=== PATIENT | male | born 1940 | race African-American/Black ===

== ENCOUNTER 2020-09-12 09:25 | Inpatient (IN) | payer OTHER, SELFPAY ==
[2020-09-12] VITALS (14 sets, daily range): BP systolic 136–189; BP diastolic 74–102; PULSE 60–82; RESP 16–29; TEMP 36.9–38.6; O2SAT 91–100
--- NOTE | ~2020-09-12 | CT_ITS ---
EXAMINATION: CT brain wo con EXAM DATE: 09/12/2020 10:19 INDICATION: Altered mental status. TECHNIQUE: Spiral CT of the head was performed without contrast. Axial, coronal and sagittal images were reviewed. The dose-length product (DLP) for this examination was 605.33 mGy-cm. The exposure w as tailored according to patient size, and iterative reconstruction (ASIR) was used as additional dos e reduction technique. Comparison is made to prior examination from 08/05/2019. FINDINGS: Bilateral internal capsular and basal ganglia lacunar infarctions which are old. There is n o acute intraparenchymal hemorrhage. No evidence of intraparenchymal brain mass lesion. No evidence of acute infarction. Please note that initial head CT has limited sensitivity for small or acute in farctions. There is extensive periventricular and subcortical hypodensity, nonspecific but probably r elated to small vessel ischemic disease. There is ventricular prominence out of proportion to sulci which is suspected most likely central atrophy rather than hydrocephalus. Normal pressure hydroceph alus cannot be excluded (clinical triad ataxia/gait disturbance, dementia, urinary incontinence). T here is intracranial carotid arteriosclerosis. There are no extra-axial collections. There is no ma ss effect or midline shift. The orbits are unremarkable. Over the left frontal scalp toward the vertex there is hyperdense subcutaneous region measuring about 1.5 cm in diameter extending to the calvarium, which has been a chronic finding, therefore most like ly scarring. The visualized sinuses and mastoid air cells are well aerated. IMPRESSION: 1. No acute intracranial findings. 2. Chronic age related findings. 3. 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 Reviewed, dictated and finalized at location B. AGE INSPECTOR
--- NOTE | ~2020-09-12 | NM_ITS ---
EXAMINATION: NM pulmonary perfusion DATE: 09/13/2020 12:07 INDICATION: Shortness of breath. TECHNIQUE: 5.5 mCi Tc-99m MAA was administered intravenously for perfusion images. Scintigraphic sonya ges of the chest were obtained. COMPARISON: Chest single view 09/12/2020 FINDINGS: Sensitivity and specificity are decreased by the patient's inability to keep his arms above his head. Perfusion images show small and moderate sized defects in basilar right lower lobe. There are small defects in basilar left lower lobe. The radiograph demonstrates mild atelectasis at right lung base. IMPRESSION: 1. Nondiagnostic (intermediate probability for pulmonary embolism). Reviewed, dictated and finalized at location A. E LEADER
--- NOTE | ~2020-09-12 | XR_ITS ---
EXAMINATION: XR chest 1V EXAM DATE: 09/12/2020 10:22 INDICATION: Shortness of breath. TECHNIQUE: Portable AP frontal chest x-ray was obtained. Comparison is made to prior examination from 03/25/2018. FINDINGS: The lungs are clear. There are no pleural effusions. Cardiac silhouette is prominent but magnified on this AP technique. There is no pneumothorax suspected. The bones and soft tissues are unremarkable. There is aortic arteriosclerosis. There is no significant interval change. IMPRESSION: No acute cardiopulmonary findings. Reviewed, dictated and finalized at location B. ED SERVICES REPRESENTATIVE
--- NOTE | 2020-09-12 09:35 | ECG_ITS ---
Measurements Intervals [place] Rate: 66 P: 31 SC: 182 QRS: -29 QRSD: 99 T: 245 QT: 388 QTc: 408 Interpretive Statements SINUS RHYTHM LEFT VENTRICULAR HYPERTROPHY AND ST-T CHANGE INFERIOR INFARCT, AGE INDETERMINATE T WAVE ABNORMALITY IN LATERAL LEADS- CONSIDER ISCHEMIA BASELINE ARTIFACT- V2 ABNORMAL ECG Electronically Signed On 09-12-2020 9:40:55 METAL TEMPERER by Pastor Scott D.O.
[2020-09-12 09:46] LABS: Basophils Percent Auto 0.4 % (0.2-1.2); Eosinophils Percent Auto 0.1 % (0-4.4); Hematocrit 42.8 % (42.0-52.0); Hemoglobin 13.6 g/dL (14.0-18.0); Immature Granulocyte Absolute 0.03 K/mm3 (0.00-0.031); Immature Granulocyte Percent A 0.4 % (0-0.5); Lymphocytes Absolute Auto 1.85 K/mm3 (0.9-3.2); Lymphocytes Percent Auto 23.5 % (18.3-44.2); Mean Corpuscular HGB Conc 31.8 g/dl (32-36); Mean Corpuscular Hemoglobin 28.3 pg (26-34); Mean Corpuscular Volume 89.2 fl (80-100); Monocytes Absolute Auto 1.4 K/mm3 (0.1-0.6); Monocytes Percent Auto 17.4 % (2.6-8.5); Neutrophils Absolute Auto 4.6 K/mm3 (1.3-6.7); Neutrophils Percent Auto 58.2 % (45.5-73.1); Platelet Count Result 217 k/mm3 (150-375); Red Cell Distribution Width 15.1 % (11.5-14.5); White Blood Count 7.9 K/mm3 (4.5-10.0)
--- NOTE | 2020-09-12 09:55 | ED.GENADULT ---
HPI - General Adult General Chief complaint: Weakness Stated complaint: DECREASED O2 SATS,ELEVATED TEMP Time Seen by Provider: 09/12/20 09:33 Source: EMS and RN notes reviewed Mode of arrival: EMS History of Present Illness HPI narrative: Patient is a 79 y/o male sent from [place] for fever and decreased mental status. His fever reportedly started last night and was 100.8. He was given Tylenol early this morning around 4:30 AM, which helped with his fever. He has dementia at baseline and normal is awake, but does not talk much. Currently, he is lethargic and unable to provide any history. He also reportedly had pulse ox of 73% on RA and was placed on O2 at 4 L NC. He reportedly tested positive for COVID last Saturday (3 days ago). Related Data Home Medications Medication Instructions Recorded Confirmed amlodipine 5 mg PO DAILY 08/05/19 aspirin 81 mg PO DAILY 08/05/19 cholecalciferol (vitamin D3) unit 08/05/19 [Vitamin D3] clopidogrel 08/05/19 donepezil 10 mg PO HS 08/05/19 hydralazine 10 mg PO BID 08/05/19 isosorbide dinitrate 5 mg PO BID 08/05/19 labetalol 200 mg PO Q12H 08/05/19 magnesium oxide 400 mg PO DAILY 08/05/19 potassium chloride [K-Tab] 40 meq PO BID 08/05/19 simvastatin mg 08/05/19 Allergies Allergy/AdvReac Type Severity Reaction Status Date / Time No Known Allergies Allergy Unverified 09/12/20 09:47 Review of Systems Review of Systems: ROS unobtainable: Yes unobtainable due to mental status [facility] Past Medical History Medical History Arthritis CAD (coronary artery disease) Cardiomegaly Cerebral hemorrhage COPD (chronic obstructive pulmonary disease) Dementia Depression DJD (degenerative joint disease) Emphysema lung [place] GERD (gastroesophageal reflux disease) HTN (hypertension) Hyperlipidemia Left ventricular hypertrophy PTSD (post-traumatic stress disorder) Renal insufficiency Urinary incontinence Surgical History Surgical History No history of previous surgery Social History Social History Smoking status: Former smoker Gender identity (if verbalized by the patient): Male Exam Const: General: no acute distress and ill appearing Orientation/consciousness: confusion and lethargic HENMT: Head: normocephalic Ears: external ears normal General nose exam: Normal external nose present Eyes: General: appearance normal, both eyes and all related structures Conjunctivae: conjunctivae normal Neck: Neck: normal visual inspection and full ROM Chest: Chest palpation & inspection: normal inspection of the chest and no tenderness Resp: Effort & Inspection: normal respiratory effort Auscultation: clear to auscultation bilaterally Cardio: Rate: regular rate Rhythm: regular rhythm GI: GI Palp: No abdominal tenderness and Yes Soft to palpation Skin: General skin exam: normal color and turgor normal Neuro: General: confusion Cognition (Neuro): abnormal cognition Extrem: General: normal to inspection, full ROM and no pedal edema Psych: Appearance: grossly normal Affect: Blunted affect present Course Consultations Consultation #1: Discussed with Dr. Duke, who agrees to admit. Date: 09/12/20 Time: 11:01 Vital Signs Vital signs: Vital Signs Temperature 36.9 C 09/12/20 09:27 Pulse Rate 69 09/12/20 09:27 Respiratory Rate 24 H 09/12/20 09:27 Blood Pressure 148/90 H 09/12/20 09:27 Pulse Oximetry 91 09/12/20 09:27 Temperature 37.3 C 09/12/20 13:00 Pulse Rate 61 09/12/20 13:00 Respiratory Rate 18 09/12/20 13:00 Blood Pressure 136/82 09/12/20 13:00 Pulse Oximetry 100 09/12/20 13:00 Medical Decision Making Vital Signs Vital Signs: Vital Signs Temperature 36.9 C 09/12/20 09:27 Pulse Rate 69 09/12/20 09:27 Respiratory Rate 24 H 09/12/20 09:27 Blood Pressure 14
[2020-09-12 09:58] LABS: Alanine Aminotransferase 27 U/L (4-50); Albumin Level 3.7 g/dL (3.5-5.1); Alkaline Phosphatase 55 U/L (38-126); Anion Gap 6 mmol/L (8-16); Aspartate Amino Transferase 41 U/L (17-59); Bilirubin,Total 0.4 mg/dL (0.2-1.3); Blood Urea Nitrogen 42 mg/dL (9-20); Calcium 9.7 mg/dL (8.4-10.2); Carbon Dioxide 28 mmol/L (22-30); Chloride 115 mmol/L (98-107); Estimated CRCL calculation 20 ml/min; Estimated Glomerular Filt Rate 26; Glucose 114 mg/dL (75-110); Potassium 4.3 mmol/L (3.4-5.0); Sodium 149 mmol/L (137-145)
[2020-09-12 10:05] LABS: Base Excess ABG -0.7 mEq/l (+/-2.0); Fractional Inspired Oxygen 21 %; HCO3 ABG 25.1 mEq/l (22.0-26.0); Oxygen Content ABG 19.3 %vol (16.0-22.0); Oxygen Saturation ABG 98.3 % (95.0-100.0); Oxyhemoglobin 96.9 % THb (90.0-100.0); PCO2 ABG 45.7 mmHg (35.0-45.0); PO2 ABG 125.4 mmHg (80.0-100.0); PO2 FiO2 Ratio Arterial Blood 5.97 %; pH ABG 7.358 (7.350-7.450)
[2020-09-12 10:06] LABS: Device ROOM AIR; Modified Allen's Test Pass; Site Drawn RIGHT RADIAL
[2020-09-12] MEDS: DEXAMETHASONE SOD PHOS INJ 4 MG/ML VIAL 6 MG IV PUSH (10:27)
[2020-09-12] MEDS: SODIUM CHLORIDE 0.9% IV 1,000 ML 999 ML IV CONT (10:27)
[2020-09-12 11:02] LABS: Add Urine Microscopic? YES; Appearance Urine Clear (Clear); Bilirubin Urine Negative (Negative); Color Urine Yellow (Yellow); Glucose Urine UA Negative (Negative); Hyaline Casts Urine 15-19 /lpf; Ketones Urine Negative (Negative); Leukocyte Esterase Ur Negative LEU/UL (Negative); Mucus Urine Rare /lpf; Nitrate Urine Negative (Negative); Protein Urine 2+ mg/dL (Negative); Specific Grav Ur 1.028 (1.001-1.035); Squamous Epithelial Cell Urine Rare /hpf (Few); Urobilinogen Urine Negative mg/dL (<2.0)
[2020-09-12 11:03] LABS: Lactic Acid Reflex 2.6 mmol/L (0.7-2.1)
[2020-09-12 11:10] LABS: Blood Urine Negative (Negative)
--- NOTE | 2020-09-12 13:30 | PM.IMHP ---
H&P: HPI History of Present Illness Date/Time: 09/12/20 13:30 Chief Complaint: Lethargy, hypoxia, fever. 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 Given his significant dementia he is not able to provide an accurate history and as such a majority of the following is obtained via a review of his electronic medical records. At the time of my dictation he keeps his eyes close, and forces them shot when I attempt to open them. He does not answer questions however will follow simple commands including squeezing my fingers and helping me get him more situated in bed. It is documented that he tested positive for COVID on 09/09/2020 and since that time he has become progressively more lethargic and confused. Today his SpO2 was reportedly 73% on room air prompting him to be brought in for evaluation. He has minimal oxygen requirements at this time however is being admitted as he was found to have an acute on chronic kidney injury and is being admitted in this setting. Again he answers no questions and provides no history. Review of Systems Review of Systems: Narrative: Unable to be assessed given his dementia and current condition as detailed above. [facility] Past Medical History Medical History Arthritis Cardiomegaly Cerebral hemorrhage Chronic kidney disease, stage 3 Chronic obstructive pulmonary disease Congestive heart failure The patient has evidence of mixed systolic and diastolic congestive heart failure with impaired diastolic relaxation grade 1 and some wall motion abnormalities of the left ventricle with an ejection of 50 to 55% on echocardiogram in March 2018. Echocardiogram in January 2015 showed mild global left ventricular systolic dysfunction with an EF of 45 to 50%. Coronary artery disease Degenerative joint disease Dementia Depression Emphysema lung [place] Gastroesophageal reflux disease Hyperlipidemia Hypertension Posttraumatic stress disorder Urinary incontinence Valvular heart disease Mild mitral valve regurgitation and dgya-[id number] atrial valve regurgitation noted on echocardiogram in March 2018. Surgical History Surgical History No history of previous surgery Family History Family History (Updated 09/12/20 @ 15:17 by Mehreen Lawrence PA-C) Other Unknown family medical history Social History Social History (Updated 09/12/20 @ 15:17 by Mehreen Lawrence PA-C) Social History: He is a resident at [facility]. Former smoker. No alcohol or illicit substance use. Healthcare power of civil attorney is his nephew, Wale Verdugo. Full code. Spiritual care concerns: No Meds Home Medications and Allergies Home Medications Medication Instructions Recorded Confirmed Type amlodipine 5 mg PO DAILY 08/05/19 09/12/20 History aspirin 81 mg PO DAILY 08/05/19 09/12/20 History cholecalciferol (vitamin D3) See Rx Instructions .ROUTE .COMPLEX 08/05/19 09/12/20 History [Vitamin D3] clopidogrel 75 mg PO DAILY 08/05/19 09/12/20 History donepezil 10 mg PO HS 08/05/19 09/12/20 History hydralazine 10 mg PO BID 08/05/19 09/12/20 History isosorbide dinitrate 5 mg PO TID 08/05/19 09/12/20 History labetalol 200 mg PO Q12H 08/05/19 09/12/20 History magnesium oxide 400 mg PO DAILY 08/05/19 09/12/20 History potassium chloride [K-Tab] 40 meq PO DAILY 08/05/19 09/12/20 History simvastatin 5 mg PO HS 08/05/19 09/12/20 History Allergies Allergy/AdvReac Type Severity Reaction Status Date / Time No Known Allergies Allergy Verified 09/12/20 14:19 Vital Signs Vital Signs - 24 hr 09/12/20 09:27 09/12/20 09:30 09/12/20 09:34 Monica
[2020-09-12 13:49] LABS: Reflex Lactic Acid Yes or No Add Lactic
--- NOTE | 2020-09-12 13:57 | ADMGEN ---
This patient, Wale Dickson, was admitted to [facility] Surg Room 307-01. Patient/family oriented to hospital policies and general routines including ID bracelet, bed and alarms, visiting hours, pain management, procedures, bathroom and other care routines, personal items, smoking policy, room service/diet, and visiting hours. Information on how to activate the Rapid Response Team has been discussed. Patient/Family are encouraged to report perceived risks to care and to ask questions if they do not understand what they are told or what they should do.
[2020-09-12 14:26] LABS: Lactic Acid 1.2 mmol/L (0.7-2.1)
[2020-09-12 15:54] LABS: D Dimer 2.07 ug/mL (<0.48)
[2020-09-12 16:08] LABS: Anion Gap 4 mmol/L (8-16); Blood Urea Nitrogen 41 mg/dL (9-20); Calcium 9.7 mg/dL (8.4-10.2); Carbon Dioxide 31 mmol/L (22-30); Chloride 115 mmol/L (98-107); Creatine Kinase 657 U/L (55-170); Estimated CRCL calculation 23 ml/min; Estimated Glomerular Filt Rate 31; Glucose 129 mg/dL (75-110); Lactate Dehydrogenase 451 U/L (313-618); Potassium 4.6 mmol/L (3.4-5.0); Sodium 150 mmol/L (137-145)
[2020-09-12] MEDS: SODIUM CHLORIDE 0.9% IV 1,000 ML 125 ML IV CONT (16:08)
[2020-09-12 16:21] LABS: CRP 3.1 mg/dL (<1.0)
[2020-09-12] MEDS: hydrALAZINE 10 MG TABLET PO (17:03)
[2020-09-12] MEDS: ISOSORBIDE DINITRATE 5 MG TABLET PO (17:03)
[2020-09-12] MEDS: LABETALOL HCL 100 MG TABLET 200 MG PO (21:19)
[2020-09-12] MEDS: DONEPEZIL HCL 10 MG TABLET PO (21:19)
[2020-09-12] MEDS: SIMVASTATIN 5 MG TABLET PO (21:20)
[2020-09-12] MEDS: SODIUM CHLORIDE 0.45% 1,000 ML 100 ML IV CONT (22:35)
[2020-09-13] VITALS (10 sets, daily range): BP systolic 136–201; BP diastolic 60–101; PULSE 56–91; RESP 20; TEMP 36.4–36.9; O2SAT 92–100
[2020-09-13 00:58] LABS: Sodium 149 mmol/L (137-145)
--- NOTE | 2020-09-13 01:39 | PC.NURSE ---
SPOKE W/ DR. MENDOZA RE: SYSTOLIC/DIASTOLIC HTN THIS SHIFT 190s-200/100s. PT RESTFUL. NO S/X OF PAIN OR DISTRESS. LUNGS DIMINISHED THROUGHOUT. ORDER TO RECHECK IN 1HR.
[2020-09-13] MEDS: hydrALAZINE 10 MG TABLET PO ×3 (04:21→17:06)
--- NOTE | 2020-09-13 05:12 | PC.NURSE ---
PT'S NEPHEW/POA UPDATED RE:PT STATUS
[2020-09-13 06:37] LABS: Hematocrit 44.7 % (42.0-52.0); Hemoglobin 13.3 g/dL (14.0-18.0); Mean Corpuscular HGB Conc 29.8 g/dl (32-36); Mean Corpuscular Hemoglobin 27.7 pg (26-34); Mean Corpuscular Volume 92.9 fl (80-100); Mean Platelet Volume 10.7 fl (7.4-10.4); Platelet Count Result 174 k/mm3 (150-375); Red Blood Count 4.81 M/mm3 (4.6-6.20); Red Cell Distribution Width 14.8 % (11.5-14.5); White Blood Count 8.1 K/mm3 (4.5-10.0)
[2020-09-13 07:01] LABS: Anion Gap 7 mmol/L (8-16); Blood Urea Nitrogen 35 mg/dL (9-20); Calcium 9.1 mg/dL (8.4-10.2); Carbon Dioxide 23 mmol/L (22-30); Chloride 118 mmol/L (98-107); Estimated CRCL calculation 33 ml/min; Estimated Glomerular Filt Rate 48; Glucose 102 mg/dL (75-110); Magnesium 2.1 mg/dL (1.6-2.3); Potassium 4.6 mmol/L (3.4-5.0); Sodium 148 mmol/L (137-145)
[2020-09-13] MEDS: hydrALAZINE HCL 20 MG/ML VIAL 10 MG IV PUSH ×2 (08:29→21:39)
[2020-09-13] MEDS: LABETALOL HCL 100 MG TABLET 200 MG PO ×2 (10:08→20:18)
[2020-09-13] MEDS: SODIUM CHLORIDE 0.45% 1,000 ML 100 ML IV CONT ×2 (10:08→22:36)
[2020-09-13] MEDS: ISOSORBIDE DINITRATE 5 MG TABLET PO ×3 (10:14→17:07)
[2020-09-13] MEDS: amLODIPine BESYLATE 5 MG TABLET PO (10:14)
[2020-09-13] MEDS: CLOPIDOGREL BISULFATE 75 MG TABLET PO (10:14)
[2020-09-13] MEDS: MAGNESIUM OXIDE 400 MG TABLET PO (10:14)
[2020-09-13] MEDS: ASPIRIN 81 MG CHEWABLE TABLET PO (10:14)
[2020-09-13] MEDS: DEXAMETHASONE SOD PHOS INJ 4 MG/ML VIAL 6 MG IV PUSH (10:15)
[2020-09-13] MEDS: CHOLECALCIFEROL 1,000 UNITS TABLET 1000 UNITS PO (11:14)
--- NOTE | 2020-09-13 14:49 | PM.IMPN ---
Progress Note: A&P Assessment and Plan (1) Acute kidney injury superimposed on chronic kidney disease: Code(s): N17.9 - Acute kidney failure, unspecified; N18.9 - Chronic kidney disease, unspecified Status: Acute Assessment and Plan: Cr 2.90 on arrival. 1.70 today. Likely prerenal from dehydration, poor po intake. Cr appears to be at 1.50 in 2018 Continue IV fluids overnight Monitor renal function Reassess tomorrow (2) Hypernatremia: Code(s): E87.0 - Hyperosmolality and hypernatremia Status: Acute Assessment and Plan: Na 148; slow improvement Monitor Na with IV fluids - NaCl 0.45% (3) Dehydration: Code(s): E86.0 - Dehydration Status: Acute Assessment and Plan: Diet resumed. Patient appears to be more alert today, hopefully this will improve PO intake Continue IV fluids for now (4) Acute respiratory failure with hypoxia: Code(s): J96.01 - Acute respiratory failure with hypoxia Status: Acute Assessment and Plan: 2L NC on arrival, but now has been weaned to RA today. Possibly related to COVID vs other such as atelecatsis. V/Q scan indeterminate. Given that he is on RA now, PE less likely. Monitor (5) COVID-19 virus infection: Onset Date: ~09/09/20 Code(s): U07.1 - COVID-19 Status: Acute Assessment and Plan: Positive for COVID on 09/09. CXR unremarkable. Continue with decadron daily for now Continue supportive care (6) Dementia: Code(s): F03.90 - Unspecified dementia without behavioral disturbance Status: Acute Assessment and Plan: Apparently patient more alert and does not talk much. Unclear if he is at his baseline today but was able to tell me his name and answered some questions Additional Plan #Reviewed Telemetry as above and this can be discontinued. #BP reviewed and was upwards of 200 sys overnight; given hydralazine. 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 Patient has history dementia and nursing reports he does not say much. He is sleeping initially but wakes up with light physical stimuli when touching his foot. He tells me his full name but cannot answer other orientation questions. He nods yes/no to some ROS. He endorses f/c but denies cp, current sob, n/v, abdominal pain, calf pain. Per ER note, his baseline orientation is awake, but does not talk much. Review of Systems Review of Systems: All systems reviewed & are unremarkable except as noted in HPI and below (limited due to mental status) Exam Narrative: Exam Narrative: General: Patient resting supine in bed in no acute distress. Sleeping initially, easily arousable. Can tell me his name, but otherwise does not communicate much as noted above HEENT: Normocephalic, EOMI, oral mucosa a bit dry Cardiovascular: Rate and rhythm are regular. Murmur appreciated. Telemetry shows sinus rhythm with frequent PVCs Respiratory: Lungs clear to auscultation anterolateral lung dunbar. Non-labored breathing. On RA at time of visit Abdomen: Soft, non-tender, non-distended, bowel sounds present. Extremities: Peripheral pulses intact. No edema. NTTP b/l calves Neuro: Alert, but only able to tell me his name. He can follow simple commands. Objective Data Vital Signs Vital Signs: Last Vital Signs Temp 97.8 F 09/13/20 12:00 Pulse 67
[2020-09-13] MEDS: ENOXAPARIN 40 MG/0.4 ML SYRINGE SUB-Q (15:29)
[2020-09-13] MEDS: DONEPEZIL HCL 10 MG TABLET PO (20:19)
[2020-09-13] MEDS: SIMVASTATIN 5 MG TABLET PO (20:19)
[2020-09-14] VITALS (7 sets, daily range): BP systolic 139–174; BP diastolic 72–94; PULSE 79–89; RESP 16–22; TEMP 36.6–37.3; O2SAT 92–99
[2020-09-14] MEDS: hydrALAZINE HCL 20 MG/ML VIAL 10 MG IV PUSH (05:31)
[2020-09-14 06:36] LABS: Basophils Percent Auto 0.1 % (0.2-1.2); Hemoglobin 14.2 g/dL (14.0-18.0); Immature Granulocyte Absolute 0.09 K/mm3 (0.00-0.031); Immature Granulocyte Percent A 0.6 % (0-0.5); Lymphocytes Absolute Auto 2.05 K/mm3 (0.9-3.2); Lymphocytes Percent Auto 14.4 % (18.3-44.2); Mean Corpuscular HGB Conc 31.6 g/dl (32-36); Mean Corpuscular Hemoglobin 28.1 pg (26-34); Mean Corpuscular Volume 88.9 fl (80-100); Mean Platelet Volume 10.3 fl (7.4-10.4); Monocytes Absolute Auto 0.9 K/mm3 (0.1-0.6); Monocytes Percent Auto 6.5 % (2.6-8.5); Neutrophils Absolute Auto 11.2 K/mm3 (1.3-6.7); Neutrophils Percent Auto 78.4 % (45.5-73.1); Platelet Count Result 203 k/mm3 (150-375); Red Blood Count 5.06 M/mm3 (4.6-6.20); Red Cell Distribution Width 14.6 % (11.5-14.5); White Blood Count 14.2 K/mm3 (4.5-10.0)
[2020-09-14 06:53] LABS: Anion Gap 7 mmol/L (8-16); Blood Urea Nitrogen 28 mg/dL (9-20); Calcium 9.5 mg/dL (8.4-10.2); Carbon Dioxide 29 mmol/L (22-30); Chloride 111 mmol/L (98-107); Estimated CRCL calculation 40 ml/min; Estimated Glomerular Filt Rate 60; Glucose 84 mg/dL (75-110); Magnesium 1.8 mg/dL (1.6-2.3); Potassium 4.1 mmol/L (3.4-5.0); Sodium 147 mmol/L (137-145)
[2020-09-14] MEDS: amLODIPine BESYLATE 5 MG TABLET PO (09:31)
[2020-09-14] MEDS: ASPIRIN 81 MG CHEWABLE TABLET PO (09:31)
[2020-09-14] MEDS: CLOPIDOGREL BISULFATE 75 MG TABLET PO (09:32)
[2020-09-14] MEDS: DEXAMETHASONE SOD PHOS INJ 4 MG/ML VIAL 6 MG IV PUSH (09:32)
[2020-09-14] MEDS: LABETALOL HCL 100 MG TABLET 200 MG PO (09:32)
[2020-09-14] MEDS: CHOLECALCIFEROL 1,000 UNITS TABLET 1000 UNITS PO (09:32)
[2020-09-14] MEDS: hydrALAZINE 10 MG TABLET PO (09:32)
[2020-09-14] MEDS: MAGNESIUM OXIDE 400 MG TABLET PO (09:33)
[2020-09-14] MEDS: ISOSORBIDE DINITRATE 5 MG TABLET PO (09:33)
[2020-09-14] MEDS: SODIUM CHLORIDE 0.45% 1,000 ML 100 ML IV CONT (09:39)
--- NOTE | 2020-09-14 12:19 | PM.DS ---
DS: Admitting Diagnosis Admitting Diagnosis Admitting Diagnosis: Acute on chronic kidney disease, COVID, hypoxia DS: Discharge Diagnosis Discharge Diagnosis (1) Acute kidney injury superimposed on chronic kidney disease: Code(s): N17.9 - Acute kidney failure, unspecified; N18.9 - Chronic kidney disease, unspecified Status: Acute Assessment and Plan: Cr 2.90 on arrival. 1.40 today. Likely prerenal from dehydration, poor po intake. Cr appears to be at 1.50 in 2018 Encourage PO intake at NF IV fluids were given during stay Monitor renal function on 09/19 as outpatient F/u with PCP (2) Hypernatremia: Code(s): E87.0 - Hyperosmolality and hypernatremia Status: Acute Assessment and Plan: Na 147; slow improvement Given IV fluids at 0.45% NS 100 mLs/hr (3) Dehydration: Code(s): E86.0 - Dehydration Status: Acute Assessment and Plan: Diet resumed. Patient appears to be more alert today, hopefully this will improve PO intake Encourage PO intake at NF (4) Acute respiratory failure with hypoxia: Code(s): J96.01 - Acute respiratory failure with hypoxia Status: Acute Assessment and Plan: 2L NC on arrival, but now has been weaned to RA since 09/13. Possibly related to COVID vs other such as atelectasis. V/Q scan indeterminate. Given that he is on RA now, PE felt to be less likely. Monitor (5) COVID-19 virus infection: Onset Date: ~09/09/20 Code(s): U07.1 - COVID-19 Status: Acute Assessment and Plan: Positive for COVID on 09/09. CXR unremarkable. IV decadron x 3 doses total during stay Continue supportive care (6) Dementia: Code(s): F03.90 - Unspecified dementia without behavioral disturbance Status: Acute Assessment and Plan: Patient more alert and does not talk much at baseline. Unclear if he is at his baseline today but he was A&O x2 for nursing today. Nephew Wale states this is about his baseline (7) Leukocytosis: Code(s): D72.829 - Elevated white blood cell count, unspecified Status: Acute Assessment and Plan: elevated WBC to 14.2k today; felt to be related to steroids the past several days. 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 Patient reportedly tested positive on 09/09. SpO2 was reportedly 73% on RA but had minimal oxygen requirements on arrival. Decadron was started on the ED. He was found to have acute on chronic kidney injury and was given IV fluids. Patient admitted under this setting. Please see H&P for further details. Patient was admitted to the hospitalist service for further management/treatment. Patient continued on IV fluids with significant improvement in his renal function, seemingly return to his baseline by day fo discharge. He was continued on decadron during his stay. He had been weaned to RA by 09/13 and remained on RA for >24 hours. He was noted to have mild hypernatremia on arrival with some improvement in his sodium. Plan was for patient to be discharged back to the halfway with follow up with BMP and CBC on 09/19. He was to follow up with his PCP a
== END 2020-09-14 15:18 | DRG 469 ==
LOC: ANHED 10:47 → ANH3MEDSUR 13:57
PROVIDERS: Physician Assistant; Admitting Provider Internal Medicine; Emergency Provider Emergency Medicine; Visit Provider Physician Assistant
DX: N17.9 Acute kidney failure, unspecified (principal); E86.0 Dehydration; E87.0 Hyperosmolality and hypernatremia; U07.1 COVID-19; F03.90 Unspecified dementia, unspecified severity, without behavioral disturbance, psychotic disturbance, mood disturbance, and anxiety; M19.90 Unspecified osteoarthritis, unspecified site; J43.9 Emphysema, unspecified; E78.5 Hyperlipidemia, unspecified; I25.10 Atherosclerotic heart disease of native coronary artery without angina pectoris; K21.9 Gastro-esophageal reflux disease without esophagitis; I13.0 Hypertensive heart and chronic kidney disease with heart failure and stage 1 through stage 4 chronic kidney disease, or unspecified chronic kidney disease; I50.42 Chronic combined systolic (congestive) and diastolic (congestive) heart failure; N18.30 Chronic kidney disease, stage 3 unspecified; D72.829 Elevated white blood cell count, unspecified; T38.0X5A Adverse effect of glucocorticoids and synthetic analogues, initial encounter; Z86.73 Personal history of transient ischemic attack (TIA), and cerebral infarction without residual deficits
CPT/HCPCS: 36415; 36600; 51701; 70450; 71045; 78580; 80048; 80053; 81001; 82550; 82728; 82805; 83605; 83615; 83735; 84295; 85025; 85027; 85380; 86140; 87040; 87086; 93005; 96365; 96375; 99285; A9270; A9540; J0131; J0360; J1100; J1650; J7030

== ENCOUNTER 2020-09-16 06:42 | Inpatient (IN) | payer OTHER, SELFPAY ==
[2020-09-16] VITALS (13 sets, daily range): BP systolic 138–177; BP diastolic 80–97; PULSE 76–105; RESP 12–30; TEMP 36.1–38.2; O2SAT 95–98
--- NOTE | ~2020-09-16 | XR_ITS ---
EXAMINATION: XR chest 1V portable INDICATION: Shortness of breath TECHNIQUE: Portable AP chest at 0840 hours COMPARISON: 09/12/2020 FINDINGS: There are patchy opacities of the mid and lower lung zones. Able cardiomegaly is noted. The re is no pleural effusion or pneumothorax. Prominent soft tissue density in the right paratracheal re gion has been previously demonstrated to reflect mediastinal vasculature. IMPRESSION: 1. Patchy bilateral airspace opacities, consistent with atelectasis versus pneumonia. Reviewed, dictated and finalized at location A. T RELATIONS EXECUTIVE IMPRESSION: 1. Patchy bilateral airspace opacities, consistent with atelectasis versus pneu monia.
--- NOTE | 2020-09-16 06:52 | ECG_ITS ---
Measurements Intervals [place] Rate: 101 P: 14 ND: 160 QRS: -47 QRSD: 174 T: 94 QT: 409 QTc: 532 Interpretive Statements SINUS TACHYCARDIA POSSIBLE LEFT ATRIAL ENLARGEMENT LEFT AXIS DEVIATION LEFT BUNDLE BRANCH BLOCK ABNORMAL ECG Electronically Signed On 09-16-2020 6:59:59 PLASTER FOREMAN by Pastor Scott D.O.
[2020-09-16 07:12] LABS: Basophils Percent Auto 0.1 % (0.2-1.2); Hemoglobin 15.1 g/dL (14.0-18.0); Immature Granulocyte Absolute 0.06 K/mm3 (0.00-0.031); Immature Granulocyte Percent A 0.7 % (0-0.5); Lymphocytes Percent Auto 12.2 % (18.3-44.2); Mean Corpuscular HGB Conc 32.8 g/dl (32-36); Mean Corpuscular Hemoglobin 28.4 pg (26-34); Mean Corpuscular Volume 86.6 fl (80-100); Mean Platelet Volume 10.9 fl (7.4-10.4); Monocytes Absolute Auto 0.6 K/mm3 (0.1-0.6); Monocytes Percent Auto 7.3 % (2.6-8.5); Neutrophils Absolute Auto 6.5 K/mm3 (1.3-6.7); Neutrophils Percent Auto 79.7 % (45.5-73.1); Platelet Count Result 190 k/mm3 (150-375); Red Blood Count 5.31 M/mm3 (4.6-6.20); Red Cell Distribution Width 14.7 % (11.5-14.5); White Blood Count 8.2 K/mm3 (4.5-10.0)
[2020-09-16 07:22] LABS: INR 1.1; Partial Thromboplastin Time 31.9 SECONDS (22.3-36.8); Prothrombin Time 14.6 Seconds (11.1-14.7)
[2020-09-16 07:23] LABS: Alveolar/Arterial O2 Gradient 85.2 mmHg; Fractional Inspired Oxygen 28 %; HCO3 ABG 25.7 mEq/l (22.0-26.0); Oxygen Content ABG 19.4 %vol (16.0-22.0); Oxygen Saturation ABG 93.1 % (95.0-100.0); Oxyhemoglobin 91.3 % THb (90.0-100.0); PCO2 ABG 41.5 mmHg (35.0-45.0); PO2 ABG 65.5 mmHg (80.0-100.0); PO2 FiO2 Ratio Arterial Blood 2.34 %; Total Hemoglobin 15.1 g/dL (12.0-18.0)
[2020-09-16 07:24] LABS: Device NASAL CANNULA; Modified Allen's Test Pass; Site Drawn LEFT RADIAL
[2020-09-16 07:28] LABS: Alanine Aminotransferase 44 U/L (4-50); Albumin Level 3.9 g/dL (3.5-5.1); Alkaline Phosphatase 58 U/L (38-126); Anion Gap 5 mmol/L (8-16); Aspartate Amino Transferase 82 U/L (17-59); Bilirubin,Total 0.7 mg/dL (0.2-1.3); Blood Urea Nitrogen 33 mg/dL (9-20); Calcium 9.7 mg/dL (8.4-10.2); Carbon Dioxide 29 mmol/L (22-30); Chloride 111 mmol/L (98-107); Estimated CRCL calculation 34 ml/min; Estimated Glomerular Filt Rate 48; Glucose 104 mg/dL (75-110); Magnesium 1.9 mg/dL (1.6-2.3); Phosphorus 2.5 mg/dL (2.5-4.5); Potassium 3.1 mmol/L (3.4-5.0); Sodium 145 mmol/L (137-145)
[2020-09-16 07:35] LABS: Glucose Point of Care 110 (65-105)
--- NOTE | 2020-09-16 07:35 | PC.NURSE ---
Called to speak to marleny Echevarria. No answer left message
[2020-09-16 07:40] LABS: CRP 20.9 mg/dL (<1.0)
[2020-09-16 07:44] LABS: Add Urine Microscopic? YES; Appearance Urine Clear (Clear); Bacteria Urine Trace /hpf; Bilirubin Urine Negative (Negative); Blood Urine 1+ (Negative); Color Urine Yellow (Yellow); Glucose Urine UA Negative (Negative); Ketones Urine Negative (Negative); Leukocyte Esterase Ur Negative LEU/UL (Negative); Mucus Urine Few /lpf; Nitrate Urine Negative (Negative); Protein Urine 2+ mg/dL (Negative); Specific Grav Ur 1.016 (1.001-1.035); Squamous Epithelial Cell Urine Rare /hpf (Few); Urobilinogen Urine Negative mg/dL (<2.0); WBC Urine 0-3 /hpf
--- NOTE | 2020-09-16 07:51 | ED.SOB ---
HPI - SOB/Dyspnea General Chief Complaint: Shortness of Breath/Dyspnea Stated Complaint: SOB, COVID + Time Seen by Provider: 09/16/20 07:20 Source: EMS Mode of arrival: EMS Limitations: dementia History of Present Illness HPI Narrative: 79 years old -[place] male [facility] a [facility] with shortness of breath and hypoxia. Patient was discharged from our hospital 2 days ago with a diagnosis of COVID-19 infection on September 09, hyponatremia and acute on top of chronic kidney failure. Patient was doing okay since discharge until 5 AM this morning when the [facility] staff found that the patient running fever up to 104, saturation 88% on room air, improved to 92% on 2 L by nasal cannula, patient also have slight labored breathing. I was told by the [facility] staff that patient is wheelchair-bound, nonverbal, and full code. History of cerebral hemorrhage, COPD, chronic kidney disease, CHF, coronary artery disease and dementia Related Data Home Medications Medication Instructions Recorded Confirmed amlodipine 5 mg PO DAILY 08/05/19 09/12/20 aspirin 81 mg PO DAILY 08/05/19 09/12/20 cholecalciferol (vitamin D3) See Rx Instructions .ROUTE .COMPLEX 08/05/19 09/12/20 [Vitamin D3] clopidogrel 75 mg PO DAILY 08/05/19 09/12/20 donepezil 10 mg PO HS 08/05/19 09/12/20 hydralazine 10 mg PO BID 08/05/19 09/12/20 isosorbide dinitrate 5 mg PO TID 08/05/19 09/12/20 labetalol 200 mg PO Q12H 08/05/19 09/12/20 magnesium oxide 400 mg PO DAILY 08/05/19 09/12/20 potassium chloride [K-Tab] 40 meq PO DAILY 08/05/19 09/12/20 simvastatin 5 mg PO HS 08/05/19 09/12/20 Allergies Allergy/AdvReac Type Severity Reaction Status Date / Time No Known Allergies Allergy Verified 09/12/20 14:19 Review of Systems Review of Systems: ROS unobtainable: Yes unobtainable due to mental status PMFSH Past Medical History Medical History Arthritis Cardiomegaly Cerebral hemorrhage Chronic kidney disease, stage 3 Chronic obstructive pulmonary disease Congestive heart failure The patient has evidence of mixed systolic and diastolic congestive heart failure with impaired diastolic relaxation grade 1 and some wall motion abnormalities of the left ventricle with an ejection of 50 to 55% on echocardiogram in March 2018. Echocardiogram in January 2015 showed mild global left ventricular systolic dysfunction with an EF of 45 to 50%. Coronary artery disease Degenerative joint disease Dementia Depression Emphysema lung [place] Gastroesophageal reflux disease Hyperlipidemia Hypertension Posttraumatic stress disorder Urinary incontinence Valvular heart disease Mild mitral valve regurgitation and [id number] atrial valve regurgitation noted on echocardiogram in March 2018. Surgical History Surgical History No history of previous surgery Family History Family History Other Unknown family medical history Social History Social History Social History: He is a resident at [facility]. Former smoker. No alcohol or illicit substance use. Healthcare power of compliance attorney is his nephew, Wale Verdugo. Full code. Spiritual care concerns: No Exam Narrative: Exam Narrative: General appearance: Well-developed, well-nourished, laying down in bed, responsive to painful stimulation, snoring Skin: Normal color Head: Normocephalic, nontraumatic Eyes: Clear conjunctiva ENT: Oropharynx normal, ears normal, nose normal Neck: Supple, nontender Chest and respiratory: Airway patent, mildly labored breathing, audible crackles Heart: Regular rate/rhythm Abdomen: Soft, nontender, no organomegaly, quiet bowel sounds Vk Neurologic: Withdrawing with painful stimulation
[2020-09-16] MEDS: SODIUM CHLORIDE 0.9% IV 1,000 ML 999 ML IV CONT (08:21)
[2020-09-16] MEDS: ASPIRIN 300 MG SUPPOSITORY RECTAL (09:34)
[2020-09-16] MEDS: KCL 20 MEQ/SW 100 ML 100 ML 50 MEQ IVPB (09:34)
--- NOTE | 2020-09-16 09:58 | PC.NURSE ---
Called and gave report to Edgardo. Was told that room was still dirty and will call when ready for pt.
--- NOTE | 2020-09-16 12:56 | PM.CNCAR ---
Assessment and Plan Additional Plan 79-year-old black male with: Babb virus pneumonia patient is recurrently febrile requiring oxygen supplementation about 48 hours after original discharge. He is seen to have a rate-related left bundle branch block which is of no great concern in my opinion. This represents senile conduction system disease. Troponin level was drawn for reasons that are not readily apparent. It is minimally elevated probably because of his acute illness I see no other recent tick 6 suspect that he has an acute myocardial infarction. This patient is not a reasonable candidate for launch an ischemia evaluation and no further cardiac evaluation will be planned or recommended in my opinion Felice Hansen MD [facility] History of Present Illness History of Present Illness Consult date/time: Date of service: 09/16/20 12:56 Reason For Visit: COVID Pneumonia, EKG Abnormality, Elevated trop, Narrative: This is a 79-year-old patient whom I have not seen previously and I am consulted to see him today from the emergency room because of the presence of a left bundle branch block and an elevated troponin level. Patient is a nonverbal [facility] resident apparently because of a CVA which a was a hemorrhagic event that was incurred in the remote past. Unfortunately he developed babb virus and was hospitalized here recently and was discharged about 48 hours before this admission. The chart indicates that his [facility] staff noted him to be febrile and be hypoxic again and so they sent him back to the emergency department. Patient is incapable of giving any complaints because he is nonverbal and in the emergency room an electrocardiogram was done which showed sinus mechanism with a left bundle branch block his laboratory data included a troponin level for reasons that are not explained which was abnormal at 0.1. These findings triggered consulting me to see him this afternoon. The patient recent EKG in in the last admission showed sinus rhythm with left ventricular hypertrophy and secondary repolarization abnormalities. Upon seeing the patient in IMU he is on telemetry and of again he is incapable of providing any history. It seems relatively obvious by looking at the telemetry trend that he has a rate related left bundle branch block where when his heart rate is below about 75 he has a narrow QRS and when it approaches 80 beats per minute he then develops a left bundle branch block physiology. Chart indicates that he has a history of coronary artery disease there are no previous records in this hospital's chart nor in my office chart that speak to any of those details. Review of Systems Review of Systems: ROS unobtainable: Yes unobtainable due to mental status PMFSH Past Medical History Medical History Arthritis Cardiomegaly Cerebral hemorrhage Chronic kidney disease, stage 3 Chronic obstructive pulmonary disease Congestive heart failure The patient has evidence of mixed systolic and diastolic congestive heart failure with impaired diastolic relaxation grade 1 and some wall motion abnormalities of the left ventricle with an ejection of 50 to 55% on echocardiogram in March 2018. Echocardiogram in January 2015 showed mild global left ventricular systolic dysfunction with an EF of 45 to 50%. Coronary artery disease Degenerative joint disease Dementia Depression Emphysema lung [place] Gastroesophageal reflux disease Hyperlipidemia Hypertension Posttraumatic stress disorder Urinary incontinence Valvular heart disease Mild mitral valve regurgitation and [id number] atrial valve regurgitation noted on echocardiogram in March 2018. Surgical History Surgical History No history of previous surgery Family History Family History Other Unknown family medical history Social Hi
--- NOTE | 2020-09-16 13:07 | PM.IMHP ---
H&P: HPI History of Present Illness Date/Time: 09/16/20 13:07 Chief Complaint: Hypoxic Narrative: Wale Dickson is a 79 year old male Who is from a jail and has a history of dementia. The patient was admitted here from 121 discharged on 09/14/2020. Patient was diagnosed with covid 19 that time. The patient was treated for to chronic renal failure. IV fluids were given during the stay. His renal function did improve. Patient was given IV Decadron time history. He also had leukocytosis at that time. It was too to the Decadron. It was noted the patient came in today with afebrile response and required oxygen feel last 48 hours. The patient so are mucosa is dry and he has thick drainage to the back of his throat. Patient is confused and is fighting staff in trying to buy them. The patient has an elevated troponin today. The patient is nonverbal. Your white troponins were drawn. Cardiology has been consulted. Cardiology has seen the patient in with the hospital and no further cardiac may your sore. The patient does have history of renal failure. The patient was okay at discharge until 5:00 a.m. this morning when he found that that his was 1 0 home on O2 saturations 80% on room air. It did improve to 92% on 2 L per nasal cannula. The patient is typically wheelchair bound and nonverbal and is a full code. The patient's white count is normal. H&H is normal. Creatinine is 1.7 which is close to his baseline. Patient's GFR is 48 today which appears to be about baseline. potassium is 3.1 troponin 0.14 desires the reactive protein 20.9. Chest x-ray was read as patchy bilateral airspace opacities consistent with atelectasis versus pneumonia. potassium was given IV push. IV fluids were started and he was given IV Tylenol. Patient was admitted to observation services date of service of 09/16/2020. Review of Systems Review of Systems: ROS unobtainable: Yes unobtainable due to mental status Constitutional: Constitutional: Reports as per HPI and Reports no additional constitutional complaints Eyes: Eyes: Reports as per HPI and Reports no additional eye complaints ENT: Reports system reviewed and no additional complaints, except as documented and Reports Normal hearing present Cardiovascular: Cardiovascular: Reports no additional cardiovascular complaints Respiratory: Respiratory: Reports no additional respiratory complaints and Reports no additional respiratory complaints Gastrointestinal: Gastrointestinal: Reports as per HPI and Reports no additional gastrointestinal complaints Musculoskeletal: Musculoskeletal: Reports no additional musculoskeletal complaints Integumentary/Breasts: Skin/Breast: Reports system reviewed and no additional complaints, except as docu and Reports as per HPI Neurologic: Reports system reviewed and no additional complaints, except as documented, Reports as per HPI and Reports Normal hearing present Psychiatric: Psychiatric: Reports no additional psychiatric complaints and Reports as per HPI Endocrine: Endocrine: Reports no additional endocrine complaints Hematologic/Lymphatic: Hematologic/Lymphatic: Reports no additional hematologic/lymphatic complaints Allergic/Immunologic: Allergic/Immunologic: Reports no additional allergic/immunologic complaints [facility] Past Medical History Medical History (Updated 09/16/20 @ 13:49 by Sully Walls NP) Arthritis Cardiomegaly Cerebral hemorrhage Chronic kidney disease, stage 3 Chronic obstructive pulmonary disease Congestive heart failure The patient has evidence of mixed systolic and diastolic congestive heart failure with impaired diastolic relaxation grade 1 and some wall motion abnormalities of the left ventricle with an ejection of 50 to 55% on echocardiogram in March 2018. Echocardiogram in January 2015 showed mild global left ventricular systolic dysfunction with an EF of 45 to 50%. Coronary artery disease Degenerative joint disease Dementi
[2020-09-16 13:33] LABS: Troponin I 0.175 ng/mL (0.000-0.034)
[2020-09-16] MEDS: SODIUM CHLORIDE 0.9% IV 1,000 ML 100 ML IV CONT (15:31)
[2020-09-16 15:54] LABS: Anion Gap 4 mmol/L (8-16); Blood Urea Nitrogen 35 mg/dL (9-20); Calcium 9.5 mg/dL (8.4-10.2); Carbon Dioxide 30 mmol/L (22-30); Chloride 114 mmol/L (98-107); Estimated CRCL calculation 31 ml/min; Estimated Glomerular Filt Rate 42; Glucose 99 mg/dL (75-110); Potassium 3.8 mmol/L (3.4-5.0); Sodium 148 mmol/L (137-145)
[2020-09-16 16:16] LABS: Troponin I 0.142 ng/mL (0.000-0.034)
[2020-09-16] MEDS: hydrALAZINE HCL 20 MG/ML VIAL 10 MG IV PUSH (18:15)
[2020-09-17] VITALS (19 sets, daily range): BP systolic 177–188; BP diastolic 99–115; PULSE 82–114; RESP 12–32; TEMP 36.6–37.3; O2SAT 90–97
[2020-09-17 00:08] LABS: Alveolar/Arterial O2 Gradient 104.1 mmHg; Base Excess ABG 0.5 mEq/l (+/-2.0); Fractional Inspired Oxygen 28 %; HCO3 ABG 23.4 mEq/l (22.0-26.0); Oxygen Saturation ABG 91.4 % (95.0-100.0); Oxyhemoglobin 90.4 % THb (90.0-100.0); PCO2 ABG 33.1 mmHg (35.0-45.0); PO2 ABG 56.5 mmHg (80.0-100.0); PO2 FiO2 Ratio Arterial Blood 2.02 %; pH ABG 7.468 (7.350-7.450)
[2020-09-17 00:10] LABS: Device NASAL CANNULA; Modified Allen's Test Unable to perform; Site Drawn LEFT RADIAL
[2020-09-17] MEDS: SODIUM CHLORIDE 0.9% IV 1,000 ML 100 ML IV CONT ×2 (03:25→13:07)
[2020-09-17] MEDS: hydrALAZINE HCL 20 MG/ML VIAL 10 MG IV PUSH ×2 (04:45→23:18)
[2020-09-17 06:04] LABS: Basophils Percent Auto 0.1 % (0.2-1.2); Eosinophils Percent Auto 0.1 % (0-4.4); Hematocrit 46.4 % (42.0-52.0); Immature Granulocyte Absolute 0.04 K/mm3 (0.00-0.031); Immature Granulocyte Percent A 0.5 % (0-0.5); Lymphocytes Absolute Auto 1.23 K/mm3 (0.9-3.2); Lymphocytes Percent Auto 14.1 % (18.3-44.2); Mean Corpuscular HGB Conc 32.3 g/dl (32-36); Mean Corpuscular Hemoglobin 28.3 pg (26-34); Mean Corpuscular Volume 87.5 fl (80-100); Mean Platelet Volume 10.6 fl (7.4-10.4); Monocytes Absolute Auto 0.6 K/mm3 (0.1-0.6); Monocytes Percent Auto 7.3 % (2.6-8.5); Neutrophils Absolute Auto 6.8 K/mm3 (1.3-6.7); Neutrophils Percent Auto 77.9 % (45.5-73.1); Platelet Count Result 206 k/mm3 (150-375); Red Cell Distribution Width 14.6 % (11.5-14.5); White Blood Count 8.7 K/mm3 (4.5-10.0)
[2020-09-17 06:18] LABS: Anion Gap 8 mmol/L (8-16); Blood Urea Nitrogen 25 mg/dL (9-20); Calcium 9.4 mg/dL (8.4-10.2); Carbon Dioxide 25 mmol/L (22-30); Chloride 116 mmol/L (98-107); Estimated CRCL calculation 36 ml/min; Estimated Glomerular Filt Rate 51; Glucose 88 mg/dL (75-110); Magnesium 1.9 mg/dL (1.6-2.3); Potassium 3.1 mmol/L (3.4-5.0); Sodium 149 mmol/L (137-145)
[2020-09-17] MEDS: ENOXAPARIN 40 MG/0.4 ML SYRINGE SUB-Q (09:44)
--- NOTE | 2020-09-17 11:32 | PCSTNOTE ---
Please refer to the Bedside Swallow Evaluation in the EMR. Please note, silent aspiration cannot be ruled out at bedside.
--- NOTE | 2020-09-17 12:24 | PM.PNCARD ---
Progress Note: A&P Assessment and Plan (1) COVID-19 virus infection: Onset Date: ~09/09/20 Code(s): U07.1 - COVID-19 Status: Acute Assessment and Plan: per hospitalist (2) Elevated troponin: Code(s): R77.8 - Other specified abnormalities of plasma proteins Status: Acute (3) Hypertension: Code(s): I10 - Essential (primary) hypertension Status: Acute Assessment and Plan: metoprolol 5 mg IV x 1 and may need IV labetolol scheduled (4) Dementia: Qualifiers: Dementia behavioral disturbance: without behavioral disturbance Dementia type: unspecified type Qualified Code(s): F03.90 - Unspecified dementia without behavioral disturbance Code(s): F03.90 - Unspecified dementia without behavioral disturbance Status: Acute Subjective Date/time seen: 09/17/20 12:24 Interval history: 79 yo with COVID date of service 09/17/2020: not responsive. rate dependent LBBB no arryhthmia. no cp Review of Systems Review of Systems: ROS unobtainable: Yes unobtainable due to mental status Exam Const: General: no acute distress Other: Nonverbal essentially unresponsive black male appears to be in no distress. Does not respond to verbal or tactile stimulation. He does respond to tactile stimulation about the face with biting. HENMT: Mouth: Yes dry mucous membranes Resp: Other: Respiratory effort is not labored and there are no rales rhonchi or wheezing audible Cardio: Rate: regular rate Rhythm: regular rhythm Extrem: Other: No peripheral edema Objective Data Vital Signs Vital Signs: Vital Signs - 24 hr 09/16/20 12:59 09/16/20 13:00 09/16/20 14:00 Temperature 36.5 C Pulse Rate 83 77 Respiratory Rate 24 H Blood Pressure 149/89 H Pulse Oximetry 96 96 09/16/20 16:00 09/16/20 18:00 09/16/20 19:34 Temperature 36.7 C 36.1 C L Pulse Rate 82 85 88 Respiratory Rate 12 24 H Blood Pressure 177/97 H 168/84 H Pulse Oximetry 98 95 09/16/20 20:00 09/16/20 22:00 09/17/20 00:00 Temperature 37.1 C Pulse Rate 88 105 H 109 H Respiratory Rate 24 H 28 H Blood Pressure 181/102 H Pulse Oximetry 95 94 09/17/20 00:11 09/17/20 00:22 09/17/20 02:00 Temperature Pulse Rate 108 H 100 Respiratory Rate 32 H Blood Pressure Pulse Oximetry 91 95 09/17/20 04:00 09/17/20 06:00 09/17/20 07:28 Temperature 37.0 C 36.7 C Pulse Rate 114 H 104 H 110 H Respiratory Rate 24 H 28 H Blood Pressure 180/115 H 185/107 H Pulse Oximetry 95 97 09/17/20 08:00 09/17/20 10:00 Temperature Pulse Rate 110 H 98 Respiratory Rate Blood Pressure Pulse Oximetry 97 Intake/Output Intake/Output: Intake & Output 09/14/20 09/15/20 09/16/20 09/17/20 23:59 23:59 23:59 23:59 Intake Total 1200 1000 Balance 1200 1000 Meds/Results Medications: Active Medications Generic Name Dose Route Start Last Admin Trade Name Freq PRN Reason Stop Dose Admin Aspirin 81 mg 09/17/20 08:00 Aspirin 81 Mg Chewable Tablet PO DAILY@0800 FRANCA Enoxaparin Sodium 40 mg 09/17/20 09:00 09/17/20 09:44 Enoxaparin 40 Mg/0.4 Ml Syringe SUB-Q 40 mg DAILY FRANCA Administration Hydralazine HCl 10 mg 09/16/20 13:47 09/17/20 04:45 Hydralazine Hcl 20 Mg/Ml Vial IV PUSH 10 mg Q8H PRN Administration Blood Pressure - High Sodium Chloride 1,000 mls @ 100 mls/hr 09/16/20 14:05 09/17/20 03:25 Normal Saline Iv IV CONT 100 mls/hr .Q10H FRANCA Administration Levalbuterol HCl 2 puff 09/16/20 13:45 Levalbuterol Hfa (*Sp) 15 Gm Inhaler INHALATION Q6HRT PRN Shortness Of Breath Radiology Results: ITS Impressions Chest X-Ray 09/16/20 08:41 IMPRESSION: 1. Patchy bilateral airspace opacities, consistent with atelectasis versus pneumonia. Labs Labs: Laboratory Results - last 24 hr 09/16/20 09/16/20 09/16/20 12:21 15:23 15:23 WBC RBC Hgb Hct MCV MCH MCHC
[2020-09-17] MEDS: ASPIRIN 81 MG CHEWABLE TABLET PO (13:07)
[2020-09-17] MEDS: METOPROLOL TARTRATE INJ 5 MG/5 ML VIAL IV PUSH (13:07)
--- NOTE | 2020-09-17 17:14 | PM.IMPN ---
Progress Note: A&P Assessment and Plan (1) 2019 novel coronavirus–infected pneumonia (NCIP)#8211;infected pneumonia (NCIP): Code(s): U07.1 - COVID-19; J12.82 - Pneumonia due to coronavirus disease 2019 Status: Acute Assessment and Plan: Supportive care and oxygen required. Chest x-ray was read as patchy bilateral airspace opacities consistent with atelectasis versus pneumonia. (2) Elevated troponin: Code(s): R77.8 - Other specified abnormalities of plasma proteins Status: Acute Assessment and Plan: Not cardiac in nature. (3) Dementia: Qualifiers: Dementia behavioral disturbance: without behavioral disturbance Dementia type: unspecified type Qualified Code(s): F03.90 - Unspecified dementia without behavioral disturbance Code(s): F03.90 - Unspecified dementia without behavioral disturbance Status: Acute Assessment and Plan: The patient has been on Aricept. (4) Acute kidney injury superimposed on chronic kidney disease: Code(s): N17.9 - Acute kidney failure, unspecified; N18.9 - Chronic kidney disease, unspecified Status: Acute Assessment and Plan: Patient's creatinine is 1.6 continue fluid unsure pt s intake looks very tired in bed (5) Congestive heart failure: Code(s): I50.9 - Heart failure, unspecified Status: Acute Assessment and Plan: Continue with home medications if patient passes his swallow study. Subjective Date/time seen: 09/17/20 17:14 Interval history: 79 year old male Who is from a intermediate and has a history of dementia. pt is not responsive to verbal conversation. moving his body in bed opening his eyes Review of Systems Review of Systems: ROS unobtainable: Yes unobtainable due to mental status Exam Narrative: Exam Narrative: Older man on 4 liters of oxygen, frail elderly tired lying in bed Resp: Effort & Inspection: normal respiratory effort Auscultation: clear to auscultation bilaterally Percussion: percussion normal Cardio: Palpation: normal PMI Rate: regular rate Rhythm: regular rhythm Heart sounds: S1 normal heart sound present and S2 normal heart sound present Peripheral pulses: Peripheral pulses 2+ throughout GI: Inspection: normal to inspection Auscultation: normal bowel sounds Neuro: Cranial nerves: Yes Other cranial nerve findings present (moving his limbs in bed ) Objective Data Vital Signs Vital Signs: Vital Signs - 24 hr 09/16/20 18:00 09/16/20 19:34 09/16/20 20:00 Temperature 36.1 C L Pulse Rate 85 88 88 Respiratory Rate 24 H 24 H Blood Pressure 168/84 H Pulse Oximetry 95 95 09/16/20 22:00 09/17/20 00:00 09/17/20 00:11 Temperature 37.1 C Pulse Rate 105 H 109 H Respiratory Rate 28 H Blood Pressure 181/102 H Pulse Oximetry 94 91 09/17/20 00:22 09/17/20 02:00 09/17/20 04:00 Temperature 37.0 C Pulse Rate 108 H 100 114 H Respiratory Rate 32 H 24 H Blood Pressure 180/115 H Pulse Oximetry 95 95 09/17/20 06:00 09/17/20 07:28 09/17/20 08:00 Temperature 36.7 C Pulse Rate 104 H 110 H 110 H Respiratory Rate 28 H Blood Pressure 185/107 H Pulse Oximetry 97 97 09/17/20 10:00 09/17/20 12:00 09/17/20 13:07 Temperature 36.6 C Pulse Rate 98 101 H 95 Respiratory Rate 14 Blood Pressure 188/109 H Pulse Oximetry 91 09/17/20 14:00 09/17/20 14:24 09/17/20 16:00 Temperature 36.8 C Pulse Rate 87 91 Respiratory Rate 12 Blood Pressure 180/99 H Pulse Oximetry 96 90 Intake/Output Intake/Output: Intake & Output 09/14/20 09/15/20 09/16/20 09/17/20 23:59 23:59 23:59 23:59 Intake Total 1200 2040 Balance 1200 2040 Meds/Results Medications: Active Medications Generic Name Dose Route Start Last Admin Trade Name Freq PRN Reason Stop Dose Admin Aspirin 81 mg 09/17/20 08:00 09/17/20 13:07 Aspirin 81 Mg Chewable Tablet PO 81 mg DAILY@0800 FRANCA Administration Enox
[2020-09-18] VITALS (17 sets, daily range): BP systolic 144–193; BP diastolic 87–107; PULSE 71–111; RESP 20–24; TEMP 36.1–37.6; O2SAT 90–93; BMI 26.2
[2020-09-18] MEDS: SODIUM CHLORIDE 0.9% IV 1,000 ML 100 ML IV CONT ×3 (03:01→23:19)
[2020-09-18 06:05] LABS: Magnesium 1.8 mg/dL (1.6-2.3)
[2020-09-18] MEDS: hydrALAZINE HCL 20 MG/ML VIAL 10 MG IV PUSH (08:08)
[2020-09-18] MEDS: ASPIRIN 81 MG CHEWABLE TABLET PO (08:08)
[2020-09-18] MEDS: ENOXAPARIN 40 MG/0.4 ML SYRINGE SUB-Q (08:08)
[2020-09-18] MEDS: MAGNESIUM OXIDE 400 MG TABLET PO (09:32)
[2020-09-18 10:10] LABS: Anion Gap 7 mmol/L (8-16); Blood Urea Nitrogen 21 mg/dL (9-20); Calcium 9.7 mg/dL (8.4-10.2); Carbon Dioxide 28 mmol/L (22-30); Chloride 116 mmol/L (98-107); Estimated CRCL calculation 40 ml/min; Estimated Glomerular Filt Rate 60; Glucose 128 mg/dL (75-110); Sodium 151 mmol/L (137-145)
[2020-09-18] MEDS: POTASSIUM CHLORIDE 20 MEQ PACKET (FOR LIQUID) 40 MEQ PO (10:27)
--- NOTE | 2020-09-18 10:53 | PM.PNCARD ---
Progress Note: A&P Assessment and Plan (1) COVID-19 virus infection: Onset Date: ~09/09/20 Code(s): U07.1 - COVID-19 Status: Acute Assessment and Plan: per hospitalist (2) Elevated troponin: Code(s): R77.8 - Other specified abnormalities of plasma proteins Status: Acute (3) Hypertension: Code(s): I10 - Essential (primary) hypertension Status: Acute Assessment and Plan: I started labetalol 200 mg p.o. q.12 hours. (4) Dementia: Qualifiers: Dementia behavioral disturbance: without behavioral disturbance Dementia type: unspecified type Qualified Code(s): F03.90 - Unspecified dementia without behavioral disturbance Code(s): F03.90 - Unspecified dementia without behavioral disturbance Status: Acute Subjective Date/time seen: 09/18/20 10:53 Interval history: 79 yo with COVID date of service 09/18/2020: not responsive. rate dependent LBBB no arryhthmia. Review of Systems Review of Systems: ROS unobtainable: Yes unobtainable due to mental status Gastrointestinal: Gastrointestinal: Denies hematochezia Exam Const: General: no acute distress Other: Nonverbal essentially unresponsive black male appears to be in no distress. Does not respond to verbal or tactile stimulation. He does respond to tactile stimulation about the face with biting. HENMT: Mouth: Yes dry mucous membranes Eyes: Sclera: sclerae normal Neck: Neck: supple and no JVD Resp: Other: Respiratory effort is not labored and there are no rales rhonchi or wheezing audible Cardio: Rate: regular rate Rhythm: regular rhythm Extrem: Other: No peripheral edema Objective Data Vital Signs Vital Signs: Vital Signs - 24 hr 09/17/20 12:00 09/17/20 13:07 09/17/20 14:00 Temperature 36.6 C Pulse Rate 101 H 95 87 Respiratory Rate 14 Blood Pressure 188/109 H Pulse Oximetry 91 09/17/20 14:24 09/17/20 14:30 09/17/20 16:00 Temperature 36.8 C Pulse Rate 91 Respiratory Rate 12 Blood Pressure 180/99 H Pulse Oximetry 96 91 91 09/17/20 18:00 09/17/20 20:00 09/17/20 22:00 Temperature 37.3 C Pulse Rate 92 90 90 Respiratory Rate 20 Blood Pressure 178/99 H Pulse Oximetry 90 09/17/20 23:16 09/18/20 00:00 09/18/20 01:54 Temperature 37.1 C Pulse Rate 91 103 H 93 Respiratory Rate 20 20 Blood Pressure 177/106 H Pulse Oximetry 92 92 09/18/20 04:00 09/18/20 05:52 09/18/20 08:00 Temperature 37.2 C 36.6 C Pulse Rate 87 90 105 H Respiratory Rate 20 20 Blood Pressure 153/89 H 193/106 H Pulse Oximetry 93 92 09/18/20 09:30 09/18/20 09:44 Temperature Pulse Rate Respiratory Rate Blood Pressure 148/88 H Pulse Oximetry 92 Intake/Output Intake/Output: Intake & Output 09/15/20 09/16/20 09/17/20 09/18/20 23:59 23:59 23:59 23:59 Intake Total 1200 3920 170 Output Total 200 620 Balance 1200 3720 -450 Meds/Results Medications: Active Medications Generic Name Dose Route Start Last Admin Trade Name Freq PRN Reason Stop Dose Admin Aspirin 81 mg 09/17/20 08:00 09/18/20 08:08 Aspirin 81 Mg Chewable Tablet PO 81 mg DAILY@0800 [facility] Administration Donepezil HCl 10 mg 09/18/20 21:00 Donepezil Hcl 10 Mg Tablet PO HS [facility] Enoxaparin Sodium 40 mg 09/17/20 09:00 09/18/20 08:08 Enoxaparin 40 Mg/0.4 Ml Syringe SUB-Q 40 mg DAILY FRANCA Administration Ergocalciferol 50,000 unit 10/23/20 09:00 Ergocalciferol 50,000 Unit Capsule PO MONTHLY [facility] Hydralazine HCl 10 mg 09/16/20 13:47 09/18/20 08:08 Hydralazine Hcl 20 Mg/Ml Vial IV PUSH 10 mg Q8H PRN Administration Blood Pressure - High Sodium Chloride 1,000 mls @ 100 mls/hr 09/16/20 14:05 09/18/20 07:08 Normal Saline Iv IV CONT Not Given .Q10H [facility]ANCA Labetalol HCl 200 mg 09/18/20 10:55 Labetalol Hcl 100 Mg Tablet PO Q12HR [facility] Levalbuterol HCl 2 puff 09/16/20 13:45 Levalbuterol Hfa
[2020-09-18] MEDS: LABETALOL HCL 100 MG TABLET 200 MG PO ×2 (11:40→21:40)
[2020-09-18] MEDS: ISOSORBIDE DINITRATE 5 MG TABLET PO (14:01)
--- NOTE | 2020-09-18 14:42 | PM.IMPN ---
Progress Note: A&P Assessment and Plan (1) 2019 novel coronavirus–infected pneumonia (NCIP)#8211;infected pneumonia (NCIP): Code(s): U07.1 - COVID-19; J12.82 - Pneumonia due to coronavirus disease 2019 Status: Acute Assessment and Plan: Supportive care and oxygen required. Chest x-ray was read as patchy bilateral airspace opacities consistent with atelectasis versus pneumonia. 09/18/20 14:42 Patient is 79-year-old -German male original nursing initially patient was diagnosed with COVID-19 on 09/09, and was treated in hospital and discharged back to [facility] on 09/14 when he was stable however patient was sent back to emergency depart on 09/16 as he was desaturating and had a fever unfortunately patient is nonverbal and with severe dementia unable to provide any history review of symptom, today patient is restarted on dexamethasone, patient was found to elevated tropes patient seen by mortgage protection specialist does not suspect acute coronary syndrome, blood pressure is also elevated patient was seen by mortgage protection specialist, started the patient on labetalol his home medication, will hold remaining the patient medication and monitor patient blood pressure and further recommendation to follow. (2) Elevated troponin: Code(s): R77.8 - Other specified abnormalities of plasma proteins Status: Acute Assessment and Plan: Not cardiac in nature. (3) Dementia: Qualifiers: Dementia behavioral disturbance: without behavioral disturbance Dementia type: unspecified type Qualified Code(s): F03.90 - Unspecified dementia without behavioral disturbance Code(s): F03.90 - Unspecified dementia without behavioral disturbance Status: Acute Assessment and Plan: The patient has been on Aricept. (4) Acute kidney injury superimposed on chronic kidney disease: Code(s): N17.9 - Acute kidney failure, unspecified; N18.9 - Chronic kidney disease, unspecified Status: Acute Assessment and Plan: Patient's creatinine is 1.6 continue fluid unsure pt s intake looks very tired in bed (5) Congestive heart failure: Code(s): I50.9 - Heart failure, unspecified Status: Acute Assessment and Plan: Continue with home medications if patient passes his swallow study. Subjective Date/time seen: 09/18/20 14:42 Patient is 79-year-old -German male original nursing initially patient was diagnosed with COVID-19 on 09/09, and was treated in hospital and discharged back to [facility] on 09/14 when he was stable however patient was sent back to emergency depart on 09/16 as he was desaturating and had a fever unfortunately patient is nonverbal and with severe dementia unable to provide any history review of symptom, today patient is restarted on dexamethasone, patient was found to elevated tropes patient seen by mortgage protection specialist does not suspect acute coronary syndrome, blood pressure is also elevated patient was seen by mortgage protection specialist, started the patient on labetalol his home medication, will hold remaining the patient medication and monitor patient blood pressure and further recommendation to follow. Review of Systems Review of Systems: ROS unobtainable: Yes unobtainable due to mental status Exam Narrative: Exam Narrative: Elderly frail somnolent Patient is comfortable, NAD HEENT: eyes are clear and none icteric LUNGS: Rapid breathing ABD: Not distended Lower extremities: no edema SKIN: nonjaundiced Neuro: Somnolent nonverbal Objective Data Vital Signs Vital Signs: Vital Signs - 24 hr 09/17/20 16:00 09/17/20 18:00 09/17/20 20:00 Temperature 98.2 F 99.2 F Pulse Rate 91 92 90 Respiratory Rate 12 20 Blood Pressure 180/99 H 178/99 H Pulse Oximetry 91 90 09/17/20 22:00 09/17/20 23:16 09/18/20 00:00 Temperature 98.8 F Pulse Rate 90 91 103 H Respiratory Rate 20 20 Blood Pressure 177/106 H Pulse Oximetry 92 92 09/18/20 01:54 09/18/20 04:00
[2020-09-18] MEDS: DEXAMETHASONE SOD PHOS INJ 4 MG/ML VIAL IV PUSH ×2 (17:04→23:20)
[2020-09-18] MEDS: DONEPEZIL HCL 10 MG TABLET PO (21:40)
[2020-09-18] MEDS: SIMVASTATIN 5 MG TABLET PO (21:40)
[2020-09-19] VITALS (16 sets, daily range): BP systolic 121–179; BP diastolic 73–99; PULSE 58–78; RESP 18–26; TEMP 36.1–37.1; O2SAT 90–96
[2020-09-19 06:30] LABS: Hematocrit 45.7 % (42.0-52.0); Hemoglobin 14.4 g/dL (14.0-18.0); Mean Corpuscular HGB Conc 31.5 g/dl (32-36); Mean Corpuscular Volume 88.7 fl (80-100); Platelet Count Result 184 k/mm3 (150-375); Red Blood Count 5.15 M/mm3 (4.6-6.20); Red Cell Distribution Width 14.7 % (11.5-14.5)
[2020-09-19] MEDS: DEXAMETHASONE SOD PHOS INJ 4 MG/ML VIAL IV PUSH ×4 (06:33→23:53)
[2020-09-19 06:48] LABS: Alanine Aminotransferase 42 U/L (4-50); Albumin Level 3.4 g/dL (3.5-5.1); Alkaline Phosphatase 52 U/L (38-126); Anion Gap 5 mmol/L (8-16); Aspartate Amino Transferase 70 U/L (17-59); Bilirubin,Total 0.7 mg/dL (0.2-1.3); Blood Urea Nitrogen 30 mg/dL (9-20); Calcium 9.4 mg/dL (8.4-10.2); Carbon Dioxide 27 mmol/L (22-30); Chloride 119 mmol/L (98-107); Estimated CRCL calculation 35 ml/min; Estimated Glomerular Filt Rate 51; Glucose 146 mg/dL (75-110); Potassium 4.1 mmol/L (3.4-5.0); Sodium 151 mmol/L (137-145)
[2020-09-19] MEDS: SODIUM CHLORIDE 0.9% IV 1,000 ML 100 ML IV CONT (12:20)
[2020-09-19] MEDS: ASPIRIN 81 MG CHEWABLE TABLET PO (12:21)
[2020-09-19] MEDS: LABETALOL HCL 100 MG TABLET 200 MG PO ×2 (12:21→21:03)
[2020-09-19] MEDS: ENOXAPARIN 40 MG/0.4 ML SYRINGE SUB-Q (12:22)
[2020-09-19] MEDS: MAGNESIUM OXIDE 400 MG TABLET PO (12:22)
--- NOTE | 2020-09-19 16:34 | PC.NURSE ---
This patient, Wale Dickson, was transferred to [ 330] on 09/19/20 at 1640. Personal belongings sent with patient. Report given to [Marcell ]. Appropriate documentation sent with patient.
--- NOTE | 2020-09-19 16:48 | PM.IMPN ---
Progress Note: A&P Assessment and Plan (1) 2019 novel coronavirus–infected pneumonia (NCIP)#8211;infected pneumonia (NCIP): Code(s): U07.1 - COVID-19; J12.82 - Pneumonia due to coronavirus disease 2018 Status: Acute Assessment and Plan: Supportive care and oxygen required. Chest x-ray was read as patchy bilateral airspace opacities consistent with atelectasis versus pneumonia. 09/19/20 16:48 Patient is 79-year-old -[place] male original nursing initially patient was diagnosed with COVID-19 on 09/09, and was treated in hospital and discharged back to retirement on 09/14 when he was stable however patient was sent back to emergency depart on 09/16 as he was desaturating and had a fever unfortunately patient is nonverbal and with severe dementia unable to provide any history review of symptom, today patient is restarted on dexamethasone, patient was found to elevated tropes patient seen by tuber helper does not suspect acute coronary syndrome, blood pressure is also elevated patient was seen by tuber helper, started the patient on labetalol his home medication, will hold remaining the patient medication and monitor patient blood pressure and further recommendation to follow. 09/19 patient remains clinically stable his only requiring 4 L of oxygen, his blood pressure is controlled, unfortunately patient is not able to provide any review of symptom or history, will continue to monitor the patient if remains clinically stable not requiring any more oxygen than 4-6 L may discharge the patient to retirement tomorrow. (2) Elevated troponin: Code(s): R77.8 - Other specified abnormalities of plasma proteins Status: Acute Assessment and Plan: Not cardiac in nature. (3) Dementia: Qualifiers: Dementia behavioral disturbance: without behavioral disturbance Dementia type: unspecified type Qualified Code(s): F03.90 - Unspecified dementia without behavioral disturbance Code(s): F03.90 - Unspecified dementia without behavioral disturbance Status: Acute Assessment and Plan: The patient has been on Aricept. (4) Acute kidney injury superimposed on chronic kidney disease: Code(s): N17.9 - Acute kidney failure, unspecified; N18.9 - Chronic kidney disease, unspecified Status: Acute Assessment and Plan: Patient's creatinine is 1.6 continue fluid unsure pt s intake looks very tired in bed (5) Congestive heart failure: Code(s): I50.9 - Heart failure, unspecified Status: Acute Assessment and Plan: Continue with home medications if patient passes his swallow study. Subjective Date/time seen: 09/19/20 16:48 Patient is 79-year-old -[place] male original nursing initially patient was diagnosed with COVID-19 on 09/09, and was treated in hospital and discharged back to retirement on 09/14 when he was stable however patient was sent back to emergency depart on 09/16 as he was desaturating and had a fever unfortunately patient is nonverbal and with severe dementia unable to provide any history review of symptom, today patient is restarted on dexamethasone, patient was found to elevated tropes patient seen by tuber helper does not suspect acute coronary syndrome, blood pressure is also elevated patient was seen by tuber helper, started the patient on labetalol his home medication, will hold remaining the patient medication and monitor patient blood pressure and further recommendation to follow. 09/19 patient remains clinically stable his only requiring 4 L of oxygen, his blood pressure is controlled, unfortunately patient is not able to provide any review of symptom or history, will continue to monitor the patient if remains clinically stable not requiring any more oxygen than 4-6 L may discharge the patient to retirement tomorrow. Review of Systems Review of Systems: ROS unobtainable: Yes unobtainable due to mental status Exam Rob
[2020-09-19] MEDS: DONEPEZIL HCL 10 MG TABLET PO (21:04)
[2020-09-19] MEDS: SIMVASTATIN 5 MG TABLET PO (21:04)
[2020-09-20] VITALS (7 sets, daily range): BP systolic 130–176; BP diastolic 80–95; PULSE 76–90; RESP 16–22; TEMP 36.2–36.9; O2SAT 90–100
--- NOTE | 2020-09-20 00:39 | PC.NURSE ---
0020: RESTLESS/AGITATED W/ START OF NEW IV ACCESS. PULLING OFF PNC. NC PLACED BACK ON PT.WILL MONITOR.
[2020-09-20] MEDS: SODIUM CHLORIDE 0.9% IV 1,000 ML 100 ML IV CONT (01:51)
--- NOTE | 2020-09-20 03:58 | PC.NURSE ---
RESTFUL IN BED. ON 4LPM. SPO2 92%
[2020-09-20] MEDS: DEXAMETHASONE SOD PHOS INJ 4 MG/ML VIAL IV PUSH ×2 (06:25→12:00)
[2020-09-20 06:31] LABS: Hematocrit 45.2 % (42.0-52.0); Hemoglobin 14.6 g/dL (14.0-18.0); Mean Corpuscular HGB Conc 32.3 g/dl (32-36); Mean Corpuscular Hemoglobin 28.2 pg (26-34); Mean Corpuscular Volume 87.4 fl (80-100); Mean Platelet Volume 10.5 fl (7.4-10.4); Platelet Count Result 287 k/mm3 (150-375); Red Blood Count 5.17 M/mm3 (4.6-6.20); Red Cell Distribution Width 14.8 % (11.5-14.5); White Blood Count 14.5 K/mm3 (4.5-10.0)
[2020-09-20 07:07] LABS: Alanine Aminotransferase 54 U/L (4-50); Albumin Level 3.3 g/dL (3.5-5.1); Alkaline Phosphatase 60 U/L (38-126); Anion Gap 5 mmol/L (8-16); Aspartate Amino Transferase 78 U/L (17-59); Bilirubin,Total 0.5 mg/dL (0.2-1.3); Blood Urea Nitrogen 34 mg/dL (9-20); Calcium 9.9 mg/dL (8.4-10.2); Carbon Dioxide 27 mmol/L (22-30); Chloride 122 mmol/L (98-107); Estimated CRCL calculation 37 ml/min; Estimated Glomerular Filt Rate 55; Glucose 136 mg/dL (75-110); Potassium 3.6 mmol/L (3.4-5.0); Sodium 154 mmol/L (137-145)
[2020-09-20] MEDS: LABETALOL HCL 100 MG TABLET 200 MG PO (08:36)
[2020-09-20] MEDS: MAGNESIUM OXIDE 400 MG TABLET PO (08:36)
[2020-09-20] MEDS: ASPIRIN 81 MG CHEWABLE TABLET PO (08:36)
[2020-09-20] MEDS: ENOXAPARIN 40 MG/0.4 ML SYRINGE SUB-Q ×2 (08:38→08:42)
--- NOTE | 2020-09-20 10:15 | PC.NURSE ---
new med orders, meds received from pharm
[2020-09-20] MEDS: amLODIPine BESYLATE 5 MG TABLET PO (10:17)
[2020-09-20] MEDS: ISOSORBIDE DINITRATE 5 MG TABLET PO ×3 (10:17→17:36)
[2020-09-20] MEDS: hydrALAZINE 10 MG TABLET PO ×2 (10:17→17:36)
--- NOTE | 2020-09-20 10:17 | PC.NURSE ---
found pt curled up in bed, had managed to pull oxygen off, was found on RA with a sat of 78%, repositioned in bed, oxygen put back on at 4L, sat quickly recovered to 93%
--- NOTE | 2020-09-20 15:30 | PM.DS ---
DS: Admitting Diagnosis Admitting Diagnosis Admitting Diagnosis: Hypoxic DS: Discharge Diagnosis Discharge Diagnosis (1) 2019 novel coronavirus–infected pneumonia (NCIP)#8211;infected pneumonia (NCIP): Code(s): U07.1 - COVID-19; J12.82 - Pneumonia due to coronavirus disease 2019 Status: Acute Assessment and Plan: Supportive care and oxygen required. Chest x-ray was read as patchy bilateral airspace opacities consistent with atelectasis versus pneumonia. 09/19/20 16:48 Patient is 79-year-old -[place] male original nursing initially patient was diagnosed with COVID-19 on 09/09, and was treated in hospital and discharged back to halfway on 09/14 when he was stable however patient was sent back to emergency depart on 09/16 as he was desaturating and had a fever unfortunately patient is nonverbal and with severe dementia unable to provide any history review of symptom, today patient is restarted on dexamethasone, patient was found to elevated tropes patient seen by internet and e business project manager does not suspect acute coronary syndrome, blood pressure is also elevated patient was seen by internet and e business project manager, started the patient on labetalol his home medication, will hold remaining the patient medication and monitor patient blood pressure and further recommendation to follow. 09/19 patient remains clinically stable his only requiring 4 L of oxygen, his blood pressure is controlled, unfortunately patient is not able to provide any review of symptom or history, will continue to monitor the patient if remains clinically stable not requiring any more oxygen than 4-6 L may discharge the patient to halfway tomorrow. (2) Elevated troponin: Code(s): R77.8 - Other specified abnormalities of plasma proteins Status: Acute Assessment and Plan: Not cardiac in nature. (3) Dementia: Qualifiers: Dementia behavioral disturbance: without behavioral disturbance Dementia type: unspecified type Qualified Code(s): F03.90 - Unspecified dementia without behavioral disturbance Code(s): F03.90 - Unspecified dementia without behavioral disturbance Status: Acute Assessment and Plan: The patient has been on Aricept. (4) Acute kidney injury superimposed on chronic kidney disease: Code(s): N17.9 - Acute kidney failure, unspecified; N18.9 - Chronic kidney disease, unspecified Status: Acute Assessment and Plan: Patient's creatinine is 1.6 continue fluid unsure pt s intake looks very tired in bed (5) Congestive heart failure: Code(s): I50.9 - Heart failure, unspecified Status: Acute Assessment and Plan: Continue with home medications if patient passes his swallow study. DS: Summary Hospital Course Reason for hospitalization: Chief Complaint: Hypoxic Narrative: Wale Dickson is a 79 year old male Who is from a halfway and has a history of dementia. The patient was admitted here from [facility] discharged on 09/14/2020. Patient was diagnosed with covid 19 that time. The patient was treated for to chronic renal failure. IV fluids were given during the stay. His renal function did improve. Patient was given IV Decadron time history. He also had leukocytosis at that time. It was too to the Decadron. It was noted the patient came in today with afebrile response and required oxygen feel last 48 hours. The patient so are mucosa is dry and he has thick drainage to the back of his throat. Patient is confused and is fighting staff in trying to buy them. The patient has an elevated troponin today. The patient is nonverbal. Your white troponins were drawn. Cardiology has been consulted. Cardiology has seen the patient in with the hospital and no further cardiac may your sore. The patient does have history of renal failure. The patient was okay at discharge until 5:00 a.m. this morning when he found that that his was 1 0 home on O2 saturations 80% on room air
--- NOTE | 2020-09-20 16:40 | PC.NURSE ---
report called to Jane at [facility], reviewed dc orders and plan of care
== END 2020-09-20 17:42 | DRG 137 ==
LOC: ANHED 09:15 → ANHIMU 09:50 → ANH3MEDSUR 09-19 17:11 → ANHIMU 09-22 16:16
PROVIDERS: Emergency Medicine; Family Medicine; Nurse Practitioner; Admitting Provider Internal Medicine; Emergency Provider Emergency Medicine; Visit Provider Family Medicine
DX: U07.1 COVID-19 (principal); J12.82 Pneumonia due to coronavirus disease 2019; I13.0 Hypertensive heart and chronic kidney disease with heart failure and stage 1 through stage 4 chronic kidney disease, or unspecified chronic kidney disease; I50.42 Chronic combined systolic (congestive) and diastolic (congestive) heart failure; N18.30 Chronic kidney disease, stage 3 unspecified; J96.01 Acute respiratory failure with hypoxia; N17.9 Acute kidney failure, unspecified; F03.90 Unspecified dementia, unspecified severity, without behavioral disturbance, psychotic disturbance, mood disturbance, and anxiety; M19.90 Unspecified osteoarthritis, unspecified site; R79.89 Other specified abnormal findings of blood chemistry; I25.10 Atherosclerotic heart disease of native coronary artery without angina pectoris; J43.9 Emphysema, unspecified; K21.9 Gastro-esophageal reflux disease without esophagitis; E78.5 Hyperlipidemia, unspecified; F43.12 Post-traumatic stress disorder, chronic; R32 Unspecified urinary incontinence; E86.0 Dehydration; E87.6 Hypokalemia; Z87.891 Personal history of nicotine dependence
CPT/HCPCS: 36415; 36600; 71045; 80048; 80053; 81001; 82728; 82805; 82948; 83605; 83735; 84100; 84443; 84484; 85025; 85027; 85610; 85730; 86140; 87040; 92610; 93005; 96361; 96365; 96367; 96372; 96375; 96376; 99291; A9270; G0378; G0379; J0131; J0360; J1100; J1650; J3480; J7030